=== PATIENT | female | born 1935 | race Caucasian/White ===

== ENCOUNTER 2024-09-07 14:54 | Outpatient (REF) | payer MEDICAID, SELFPAY | END 2024-09-07 14:55 | disposition home or self-care (01) | LOC: HO.SH 14:54 | PROVIDERS: Visit Provider Physician Assistant | DX: Z01.118 Encounter for examination of ears and hearing with other abnormal findings (principal); H90.3 Sensorineural hearing loss, bilateral | CPT/HCPCS: 92553; 92567 ==

== ENCOUNTER 2024-09-29 14:07 | Outpatient (REF) | payer MEDICAID, SELFPAY ==
--- NOTE | 2024-09-29 15:35 | MHC.AU.HA1 ---
Hearing Aid Evaluation Date of Visit: 09/29/24 Copyholder Used: Katie, voice call Historical Information: Description of Hearing: Moderate to severe sensorineural hearing loss, bilateral. Current personal amplification information, if applicable: Richard LÓPEZ, right ear only, 10-12 years old. Summary: Accompanied by daughter. Janice was recently seen for hearing evaluation on 09/07/24. Binaural amplification recommended. Janice reports successful wax removal Ad. Recommended miniBTE, style consistent with what she has previously worn. Discussed rechargeable vs. batteries- Janice selected rechargeable. Currently wearing acrylic canal mold. Impressions taken without incidence Au. Hearing Aid Prescription: Based on the individual?s shared listening needs, communication environments, dexterity, desire for connectivity, and personal preferences, the following prescription for amplification has been made: Right ear: Make, Model, Color: Oticon Real 2 miniBTE R chroma beige Battery Size: Rechargeable Lead Software Test Engineer/Slim Tube: Type of Earmold/Dome/CShell/SlimTip: acrylic canal Left ear: Make, Model, Color: Oticon Real 2 miniBTE R chroma beige Battery Size: Rechargeable Lead Software Test Engineer/Slim Tube: Type of Earmold/Dome/CShell/SlimTip: acrylic canal Plan of Care: Patient wishes to purchase hearing aids as prescribed Action Taken/Action Needed: Earmold Impressions Taken Medical Clearance to be requested from PCP/ENT Hearing Instrument Fitting to be scheduled when materials arrive Primary Diagnosis: H90.3 Bilateral Sensorineural Hearing Loss Signature: Provider: Amy Lanier, [facility]
== END 2024-09-29 14:08 | disposition home or self-care (01) ==
LOC: HO.HAP 14:07
PROVIDERS: Visit Provider Physician Assistant
DX: Z46.1 Encounter for fitting and adjustment of hearing aid (principal); H90.3 Sensorineural hearing loss, bilateral
CPT/HCPCS: 92591; V5275

== ENCOUNTER 2024-10-27 14:05 | Outpatient (REF) | payer MEDICAID, SELFPAY ==
--- NOTE | 2024-10-27 15:47 | MHC.AU.HA2 ---
Hearing Instrument Fitting- Adult- Binaural Date of Visit: 10/27/24 Hearing Instruments Dispensed: Right Ear: Make, Model, Color, Serial Number: Oticon Real 2 miniBTE R chroma beige S#[id number] Learning Disabled Teacher Repair Warranty: 11/17/2027 Learning Disabled Teacher Loss and Damage Warranty: 11/17/2027 [facility] Service Plan: 10/27/25 Battery Size: Rechargeable Earmold/Dome/CShell/SlimTip: acrylic canal S#[id number] Warranty 02/02/2025 Left Ear: Make, Model, Color, Serial Number: Oticon Real 2 miniBTE R chroma beige s#[id number] Learning Disabled Teacher Repair Warranty: 11/17/2027 Learning Disabled Teacher Loss and Damage Warranty: 11/17/2027 [facility] Service Plan: 10/27/25 Battery Size: Rechargeable Earmold/Dome/CShell/SlimTip: #acrylic canal S#[id number] Warranty 02/02/2025 Accessories/Assistive Technology: Oticon minibte shipping clerk/admin S#[id number] Warranty 11/17/2027 Summary of Fitting: Fit with and oriented to binaural Oticon Real 2 miniBTE R hearing aids. Verified to L adult 5 targets. Counseled on adjustment from monaural to binaural fitting. Janice reports good subjective comfort and benefit. Practiced insertion and removal, daughter helped with left ear due to left hand weakness from stroke. Demonstrated charging. Reviewed maintenance and precautions. Cleaned and re-tubed Janice's old hearing aid, she wanted it to be working so that she will have a battery operated back up. Listening check positive. Recommendations: Recommendations: Hearing instrument care and maintenance were discussed and practiced. A hearing instrument follow-up was scheduled. Diagnosis Code(s): Primary Diagnosis: H90.3 Bilateral Sensorineural Hearing Loss Signature: Provider: Amy Lanier, [facility]
== END 2024-10-27 14:06 | disposition home or self-care (01) ==
LOC: HO.HAP 14:05
PROVIDERS: Visit Provider Internal Medicine
DX: Z46.1 Encounter for fitting and adjustment of hearing aid (principal); H90.3 Sensorineural hearing loss, bilateral
CPT/HCPCS: V5011; V5020; V5160; V5261; V5264

== ENCOUNTER 2024-11-29 14:09 | Outpatient (REF) | payer MEDICAID, SELFPAY ==
--- NOTE | 2024-11-29 15:23 | MHC.AU.HA3 ---
Hearing Instrument Follow-Up- Binaural Date of Visit: 11/29/24 Right Ear: Make, Model, Color, Serial Number: Oticon Real 2 miniBTE R chroma beige S#[id number] Perforator Typist Repair Warranty: 11/17/2027 Perforator Typist Loss and Damage Warranty: 11/17/2027 [facility] Service Plan: 10/27/25 Battery Size: Rechargeable Leather Parts Matcher/Slim Tube: Earmold/Dome/CShell/SlimTip:acrylic canal [id number] Warranty 02/02/2025 Type of Wax Guard: Dispensed By: [facility] Date of Fittin10/27/24 Left Ear: Make, Model, Color, Serial Number: Oticon Real 2 miniBTE R chroma beige s#[id number] Perforator Typist Repair Warranty: 11/17/2027 Perforator Typist Loss and Damage Warranty: 11/17/2027 [facility] Service Plan: 10/27/25 Battery Size: Rechargeable Leather Parts Matcher/Slim Tube: Earmold/Dome/CShell/SlimTip: #acrylic canal S#[id number] Warranty 02/02/2025 Type of Wax Guard: Dispensed By: [facility] Date of Fittin10/27/24 Follow-Up Summary: Here for follow up. Reports she has not been able to wear the left because the mold does not fit far enough into ear, falls out. Reports right is good but would like volume increased. Found fit of mold on left to be tight. Impression taken for remake without incidence. Increased overall gain right 3 steps, improvement reported. Gave Janice the left aid to bring home, advised to make sure it is charged so it can be adjusted when coming in to get remade left mold. Recommendations: Recommendations: Patient will be contacted when materials have arrived. Recommendations (Other): Needs EMF appt. Diagnosis Code(s): Primary Diagnosis: H90.3 Bilateral Sensorineural Hearing Loss Signature: Provider: Amy Lanier, [facility]
== END 2024-11-29 14:10 | disposition home or self-care (01) ==
LOC: HO.HAP 14:09
PROVIDERS: Visit Provider Physician Assistant
DX: Z13.89 Encounter for screening for other disorder (principal)

== ENCOUNTER 2025-01-03 14:14 | Outpatient (REF) | payer MEDICAID, SELFPAY ==
--- NOTE | 2025-01-03 15:13 | MHC.AU.HA3 ---
Hearing Instrument Follow-Up- Binaural Date of Visit: 01/03/25 Administrative Assistant Data Entry Used: Phone. Right Ear: Make, Model, Color, Serial Number: Oticon Real 2 miniBTE R chroma beige S#[id number] Customer Account Coordinator Repair Warranty: 11/17/2027 Customer Account Coordinator Loss and Damage Warranty: 11/17/2027 [employer] Service Plan: 10/27/25 Battery Size: Rechargeable Earmold/Dome/CShell/SlimTip:acrylic canal S#[id number] Warranty 02/02/2025 Dispensed By: [employer] Date of Fittin10/27/24 Left Ear: Make, Model, Color, Serial Number: Oticon Real 2 miniBTE R chroma beige s#[id number] Customer Account Coordinator Repair Warranty: 11/17/2027 Customer Account Coordinator Loss and Damage Warranty: 11/17/2027 [employer] Service Plan: 10/27/25 Battery Size: Rechargeable Earmold/Dome/CShell/SlimTip: #acrylic canal [id number] Warranty 02/02/2025 Dispensed By: [employer] Date of Fittin10/27/24 Follow-Up Summary: Dispensed remade left earmold. Fit looks better. Janice reports good subjective comfort and benefit. Declined additional follow up at this time, will call with problems. Recommendations: Recommendations: Hearing instrument follow-up or maintenance as needed. Diagnosis Code(s): Primary Diagnosis: H90.3 Bilateral Sensorineural Hearing Loss Signature: Provider: Amy Lanier, [facility]
--- OUTSIDE RECORDS SUMMARY | 2025-01-03 15:34 | XMS_ITS | Clinical Summary ---
Author Organization [facility] Address [address] [place] [address] Care Team Providers Care Bar Tacker Sewing Machine Name Role Phone Saba Rubio PA-C Primary Care Provider [phone] Source Comments PLEASE NOTE, if this patient is a minor, it may be UNLAWFUL to discuss sensitive information that is contained in these records (such as FAMILY PLANNING, MENTAL HEALTH or SUBSTANCE ABUSE) with the minor patient's parent or other person without the patient's specific authorization.[facility] Allergies Active Allergy Reactions Criticality Noted Date Comments Bony Inhibitors 08/03/2019 Cough Alcohol High 07/18/2021 Skin Cleanser,General Rash 03/11/2019 Medications diclofenac sodium (VOLTAREN) 1 % gel Apply 2 gm qid to bilateral knees 100 g 5 07/20/20 21 Active miscellaneous medical supply miscIndications: 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 by miscellaneous route once daily Nebulizer, disp1, lifetime need, dx extrinsic asthma 1 Each 10/01/20 22 Active albuterol (PROVENTIL) 2.5 mg /3 mL (0.083 %) nebulizer solutionIndicati ons: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 Disp 2 x99 years 2 Each 06/28/20 24 Active cetirizine (ZYRTEC) 10 mg tabletIndication s:Non-seasonal allergic rhinitis, unspecified trigger Take 1 Tablet by mouth once daily 07/28/20 24 Active MISCELLANEOUS MEDICAL SUPPLY MISCIndications: Venous stasis dermatitis by miscellaneous route daily. 20-30mmHG open toe knee high compression stockings, disp 2 pairs, dx venous insufficiency 2 Each 07/28/20 24 Active triamcinolone (KENALOG) 0.5 % creamIndications :Venous stasis dermatitis Apply topically 2 (two) times daily DO NOT USE LONGER THAN 2 WEEKS 454 g 07/28/20 24 Active betamethasone valerate (VALISONE) 0.1 % ointment Apply topically once daily 30 g 2 09/09/20 24 Active carbamide peroxide (DEBROX) 6.5 % otic solution Place 5 Drops into both ears 2 (two) times daily 15 mL 09/09/20 24 Active apixaban (ELIQUIS) 2.5 mg tabIndications:P aroxysmal atrial fibrillation (HCC-CMS) Take 1 Tablet by mouth 2 (two) times daily 60 Tablet 11 09/28/20 24 Active metoprolol succinate XL (TOPROL-XL) 25 mg 24 hr tabletIndication s:Essential hypertension, benign,Paroxysma l atrial fibrillation (HCC-CMS),Cerebr ovascular accident (CVA) due to embolism of precerebral artery (HCC-CMS) TAKE 1 TABLET BY MOUTH EVERY DAY 90 Tablet 2 11/03/20 24 Active Active Problems Problem Noted Date Diagnosed Date Non-seasonal allergic rhinitis 07/28/2024 Extrinsic asthma with acute exacerbation 022 Chronic cough 05/07/2019 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 (HCC-CMS) 11/201703/11/2019 Combined forms of age-related cataract of right eye 03/11/2019 Venous insufficiency 03/11/2019 Bilateral hearing loss 03/11/2019 Varicose veins of leg with edema, bilateral 02/22 Lipoma of scalp 03/11/2019 Essential hypertension, benign 03/11/2019 Paroxysmal atrial fibrillation (HCC-CMS) 019 Left hemiparesis (HCC-CMS) due to CVA 11/2017 Social History Tobacco Use Types Packs/Day Years Used Date Smoking Tobacco: Never Smokeless Tobacco: Never Tobacco Cessation:Counseling Given: Not Answered Alcohol Use Standard Drinks/Week Comments No 0 (1 standard drink = 0.6 oz pur e alcohol) Social Connections Answer Date Recorded Connectedness 0 08/13/2024 Financial Resource Strain Answer Date R ecorded Financial Resource Strain 0 2018 Stress Answer Date Recorded Stress 0 07/19/2019 Physical Activity Answer Date Recorded Physical Activity 0 07/19/2019 Food Insecurity Answer Date Recorded Food 0 08/19/2024 Transportation Needs Answer Date Record ed Transportation 0 07/19/2019 Housing Stability Answer Date Recorded Housing 0 07/19/2019 Safety and Environment Answer Date Tripp rded Safety 0 07/19/2019 Utilities Answer Date Recorded Utilities 0 07/19/2019 Employment Answer Date Recorded Stress 0 08/13/2024 Comments No Sex and Gender Information Value Date Recorded Sex Assigned at Female 03/15/2019 7:02 PM PDT Legal Sex Female 8:48 AM PDT Gender Identity Female 03/15/2019 7:02 PM PDT Sexual Orientation Straight 03/15/2019 7: 02 PM PDT Last Filed Vital Signs Vital Sign Reading Time Taken Comments Blood Pressure 142/80 07/28/2024 1:55 PM EDT Pulse 68 07/28/2024 1:55 PM EDT Temperature 36.9 ??C (98.4 ??F) 07/28/2024 1:55 PM ED T Respiratory Rate 16 07/28/2024 1:55 PM EDT Oxygen Saturation 96% 07/28/2024 1:55 PM EDT Inhaled Oxygen Concentration - - Weight 76.7 kg (169 lb) 07/28/2024 1:55 PM EDT Height 159 cm (5' 2.6 ) 07/28/2024 1:55 PM EDT Body Mass Index 30.32 07/28/2024 1:55 PM EDT Plan of Treatment Health Maintenance Due Date Last Done Comments Advanced Care Planning 01/11/1936 Imm-DTaP/Tdap/Td (1 - Tdap) 1955 Imm-Pneumococcal 65+ (1 of 2 - PCV) 1955 Imm-Zoster, Recombinant (1 of 2) 1986 Bone Density Screening 2001 Falls Prevention 2001 Alcohol and Drug Screen 11/24/2024 10/01/2022, 03/11 Depression Annual Screen 11/24/2024 10/01/2022 [id number] ( - season) 2025 Postponed from 07/25/2024 (Patient postponement) Imm-Influenza (#1) 2025 Postponed from 07/25/2024 (Follow up visit) Annual Preventive Care Visit 07/28/2025 07/28/2024, 07/18/2021, 03/11/2019 Tobacco Screening 07/28/2025 07/28/2024 Diabetes Screening 07/28/2027 07/28/2024, 0 06/28/2024, 07/18/2021, Additional history exists Procedures Procedure Name Priority Date/Time Associated Diagnosis Comments OTHER ORDERS SCANNED DOCUMENT 10/06/2024 3:00 AM EST COMPREHENSIVE METABOLIC PANEL Routine 07/28/2024 2:42 PM EDT Routine general medical examination at a health care facility Essential hypertension, benign 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-CMS) 11/2017 Left hemiparesis (HCC-CMS) due to CVA 11/2017 Non-seasonal allergic rhinitis, unspecified trigger Venous stasis dermatitis Bilateral hearing loss, unspecified hearing loss type from Last 3 Months or Most Recently Relevant to Health Maintenance Results * OTHER ORDERS SCANNED DOCUMENT (10/06/2024 3:00 AM EST) 10/06/2024 3:00 AM EST us Saba Rubio PA-C SCAN OTHER ORDERS Final Resu lt * COMPREHENSIVE METABOLIC PANEL (07/28/2024 2:42 PM EDT) GLUCOSE 93 65 - 139 mg/dL [employer] [facility] Comment: ?Non-fasting reference interval UREA NITROGEN (BUN) 13 7 - 25 mg/dL [employer] [facility] CREATININE (blood) 0.76 0.60 - 0.95 mg/dL [employer] [facility] EGFR 76 > OR = 60 mL/min/1. 73m2 [employer] [facility] BUN/CREATININE RATIO SEE NOTE: [employer] [facility] Comment: ?? Not Reported: BUN and Creatinine are within ?? reference range. ? SODIUM 142 135 - 146 mmol/L [employer] [facility] POTASSIUM 5.3 3.5 - 5.3 mmol/L [employer] [facility] CHLORIDE 107 98 - 110 mmol/L [employer] [facility] CARBON DIOXIDE 30 20 - 32 mmol/L [employer] [facility] CALCIUM 9.7 8.6 - 10.4 mg/dL [employer] [facility] PROTEIN, TOTAL 7.7 6.1 - 8.1 g/dL [employer] [facility] ALBUMIN 4.0 3.6 - 5.1 g/dL [employer] [facility] GLOBULIN 3.7 1.9 - 3.7 g/dL (calc) [employer] [facility] ALBUMIN/GLOBULI N RATIO 1.1 1.0 - 2.5 (calc) [employer] [facility] BILIRUBIN, TOTAL 0.8 0.2 - 1.2 mg/dL [employer] [facility] ALKALINE PHOSPHATASE 92 37 - 153 U/L [employer] [facility] AST 25 10 - 35 U/L [employer] [facility] ALT 17 6 - 29 U/L [employer] [facility] Blood Blood / Unknown 07/28/2024 2 :42 PM EDT 07/28/2024 2:43 PM EDT Narrative [employer] [facility] - 07/29/2024 5:21 AM EDT FASTING:NO us Saba Rubio PA-C LAB - BLOOD DRAW Final Resul t [employer] [facility] [address] [address], [employer] [facility] [address] [place] [address] from Last 3 Months or Most Recently Relevant to Health Maintenance Insurance [place] MEDICA[place] Care Teams Bar Tacker Sewing Machine Relationship Specialty Start Date End Date Saba Rubio PA-C [address] [place] [id number] PCP - General Internal Medicine 03/11/19
== END 2025-01-03 14:15 | disposition home or self-care (01) ==
LOC: HO.HAP 14:14
PROVIDERS: PCP Physician Assistant; Visit Provider Internal Medicine
DX: Z13.89 Encounter for screening for other disorder (principal)